=== PATIENT | male | born 1985 | race Caucasian/White ===

== ENCOUNTER 2022-07-29 15:56 | Emergency (ER) | payer OTHER ==
[~2022-07-29] VITALS: Ht 170.2 cm; Wt 78.3 kg
[2022-07-29] MEDS ORDERED: ACET-1158 PO (21:42)
[2022-07-29] MEDS ORDERED: PRED20TA2 PO (21:42)
[2022-07-29] MEDS ORDERED: DOXY-286 PO (21:42)
[2022-07-29 22:01] VITALS: BP 123/87
== END 2022-07-29 22:01 | disposition home or self-care (01) ==
LOC: ER 15:56
DX: U07.1 COVID-19 (principal); J06.9 Acute upper respiratory infection, unspecified; B97.29 Other coronavirus as the cause of diseases classified elsewhere; J45.909 Unspecified asthma, uncomplicated; F32.9 Major depressive disorder, single episode, unspecified
CPT/HCPCS: 36415; 71045; 87426; 87804